=== PATIENT | male | born 1940 | race Caucasian/White ===

== ENCOUNTER → 2017-12-01 | Outpatient (CLI) | payer OTHER | END | disposition home or self-care (01) | LOC: EEVIPCON 09:19 → MCT 09:19 | DX: N13.30 Unspecified hydronephrosis (principal); K44.9 Diaphragmatic hernia without obstruction or gangrene; J98.11 Atelectasis; I25.10 Atherosclerotic heart disease of native coronary artery without angina pectoris | CPT/HCPCS: 74177; Q9967 ==